=== PATIENT | male | born 1975 | race Caucasian/White ===

== ENCOUNTER 2023-02-03 15:54 | Emergency (ER) | payer BC, OTHER ==
[~2023-02-03] VITALS: Ht 185.4 cm; Wt 136.5 kg
[2023-02-03 18:52] VITALS: BP 169/95
== END 2023-02-03 18:59 | disposition home or self-care (01) ==
LOC: EDH 15:54
DX: T25.222A Burn of second degree of left foot, initial encounter (principal); T25.221A Burn of second degree of right foot, initial encounter; X08.8XXA Exposure to other specified smoke, fire and flames, initial encounter; Y93.01 Activity, walking, marching and hiking; Y92.89 Other specified places as the place of occurrence of the external cause; Y99.8 Other external cause status
CPT/HCPCS: 99281

== ENCOUNTER 2023-05-23 08:03 | Emergency (ER) | payer BC ==
[~2023-05-23] VITALS: Ht 185.4 cm; Wt 138.3 kg
[2023-05-23] MEDS ORDERED: LABETALOL 20MG SYG IV ONE (08:30)
[2023-05-23 08:59] LABS: BASOPHILS # (AUTO) 0.09 K/uL (0.00-0.20); BASOPHILS % (AUTO) 1.2 % (0.0-5.0); EOSINOPHILS # (AUTO) 0.06 K/uL (0.00-0.70); EOSINOPHILS % (AUTO) 0.8 % (0.0-8.0); HEMATOCRIT 45.3 % (42-54); IMMATURE GRANULOCYTE ABSOLUTE 0.02 K/uL (0-1); LYMPHOCYTES # (AUTO) 1.6 K/uL (1.0-4.8); LYMPHOCYTES % (AUTO) 21.7 % (21.0-51.0); MEAN CORPUSCULAR HEMOGLOBIN 28.2 pg (27.0-33.0); MEAN CORPUSCULAR VOLUME 82.8 fL (79-99); MONOCYTES # (AUTO) 0.6 K/uL (0.1-1.0); MONOCYTES % (AUTO) 7.6 % (3.0-13.0); NEUTROPHILS # (AUTO) 5.1 K/uL (1.8-7.7); NEUTROPHILS % (AUTO) 68.4 % (40.0-77.0); PLATELET COUNT (AUTO) 219 K/uL (130-400); RED BLOOD CELL COUNT(AUTO) 5.47 MIL/uL (4.50-6.20); RED CELL DISTRIBUTION WIDTH 12.3 % (11.0-15.5); WHITE BLOOD COUNT (AUTO) 7.5 K/uL (4.8-10.8)
[2023-05-23 09:16] LABS: ALBUMIN 3.4 g/dL (3.5-5.0); BILIRUBIN,TOTAL 0.4 mg/dL (0.2-1.0); CREATININE 0.8 mg/dL (0.5-1.5); POTASSIUM 4.2 mmol/L (3.5-5.1); TOTAL PROTEIN, SERUM 8.2 g/dL (6.0-8.3)
[2023-05-23 09:30] LABS: INR 0.94 (0.85-1.15); PARTIAL THROMBOPLASTIN TIME 26.5 SEC (26.3-35.5); PROTHROMBIN TIME 10.2 SEC (9.6-11.6)
[2023-05-23] MEDS ORDERED: ACYCLOVIR 200 MG CAPSULE PO SCH (09:30)
[2023-05-23] MEDS ORDERED: FAMOTIDINE 20MG VIAL IV ONE (09:30)
[2023-05-23] MEDS ORDERED: METF500S9 PO (09:53)
[2023-05-23] MEDS ORDERED: LISI10TA24 PO (09:53)
[2023-05-23] MEDS ORDERED: ACYC400T20 PO (09:53)
[2023-05-23] MEDS ORDERED: ATOR10 PO (09:53)
[2023-05-23] MEDS ORDERED: PRED50TA2 PO (09:53)
[2023-05-23] MEDS ORDERED: FAMO-136 PO (09:53)
[2023-05-23] MEDS ORDERED: INSULIN HUMULIN R 100 UNIT/ML 3ML IV ONE (10:00)
[2023-05-23 10:30] VITALS: BP 151/86; PULSE 96; RESP 17; O2SAT 97
== END 2023-05-23 10:44 | disposition home or self-care (01) ==
LOC: EDH 08:03
DX: G51.0 Bell's palsy (principal); I10 Essential (primary) hypertension; E11.65 Type 2 diabetes mellitus with hyperglycemia; Z88.0 Allergy status to penicillin; Z88.8 Allergy status to other drugs, medicaments and biological substances
CPT/HCPCS: 99284; 96374; 70450; 71045; 96375; 82550; 83721; 84484; 80053; 83880; 85025; 85610; 85730; 82948 ×2; 36415; 93005; J1815; J3490

== ENCOUNTER 2025-08-25 10:18 | Emergency (ER) | payer BC ==
[~2025-08-25] VITALS: Ht 185.4 cm; Wt 127.0 kg
[~2025-08-25 10:18] MED LIST: ACYC-429 PO; ATOR10 PO; FAMO-136 PO; LISI10TA24 PO; METF500S9 PO; PRED50TA2 PO
[2025-08-25] MEDS ORDERED: PRED20TA3 PO (10:37)
[2025-08-25] MEDS ORDERED: ACYC-61 PO (10:37)
--- NOTE | 2025-08-25 10:37 | ERN ---
ED Note History of Present Illness Stated Complaint: POSSIBLE BELLS PALSY Chief Complaint: Face Pain/Problem Time Seen by MD: 10:29 Dictation: 50-year-old male presenting to the emergency department with right facial droop which began since last night. Patient has a history of Oden's palsy two years ago with symptoms resolved. Patient has a history of hypertension and diabetes. Allergies: Coded Allergies: Penicillins (Unverified Allergy, Unknown, 02/03/23) azithromycin (Unverified Allergy, Unknown, 02/03/23) Home Meds Active Scripts Prednisone (Prednisone) 50 Mg Tablet, 50 MG PO DAILY for 5 Days, #5 TAB 0 Refills Prov:KYLIE LAWRENCE Sr., MD 05/23/23 Acyclovir (Acyclovir) 400 Mg Tablet, 400 MG PO AD, #50 TAB 0 Refills Five times per day for ten days Prov:KYLIE LAWRENCE Sr., MD 05/23/23 Famotidine (Pepcid) 20 Mg Tablet, 20 MG PO BID, #60 TAB 2 Refills Prov:KYLIE LAWRENCE Sr., MD 05/23/23 Atorvastatin Calcium (LIPITOR) 20 Mg Tab, 20 MG PO HS, #30 TAB 2 Refills Prov:KYLIE LAWRENCE Sr., MD 05/23/23 Lisinopril (Lisinopril) 10 Mg Tablet, 2 TAB PO DAILY for 30 Days, #60 TAB 2 Refills Prov:KYLIE LAWRENCE Sr., MD 05/23/23 Metformin HCl (Metformin HCl) 500 Mg/5 Ml Solution, 500 MG PO BID, #60 ML 2 Refills Prov:KYLIE LAWRENCE Sr., MD 05/23/23 Past Medical History Past Medical History: Diabetes-Type II, Hypertension Surgical History: None Social History: Negative Review of System Dictation Constitutional: Negative for fever,chills, and weight loss Eyes: Negative for injury, pain,redness, and discharge ENT: Negative for injury,pain or swelling Cardiovascular: Negative for chest pain, palpitations, and edema Respiratory: Negative for shortness of breath, cough, and wheezing, Abdomen/GI: Negative for abdominal pain, nausea, vomiting, diarrhea, and constipation Back: Negative for injury and pain : Negative for injury, bleeding and discharge MS/Extremity: Negative for injury and deformity Skin: Negative for rash, and discoloration Neuro: Per HPI Initial Vital Sign VS Vital Signs Date Time Temp Pulse Resp B/P (MAP) Pulse Ox O2 Delivery O2 Flow Rate FiO2 08/25/25 10:21 98.4 104 16 157/97 99 Room Air 1.0 Physical Exam Dictation General: awake, alert, NAD Head/Face: Normocephalic, atraumatic Eyes: PERRL, EOMI, vision at baseline ENT: oral cavity clear, TMs clear, no signs of infection Neck: Trachea midline, supple, no nuchal rigidity Cardiovascular: RRR, normal S1/S2, No MRGs, no JVD Respiratory: CTAB, no respiratory distress, No rales or wheezes Abdomen: Soft, non-tender, non-distended, normal bowel sounds, no guarding or rebound. Skin: Warm, dry, normal turgor, no rash MS/Extremity: Pulses equal, no cyanosis, neurovascular intact, FROM Neuro: COAx4, GCS 15, strength 5/5, right-sided facial droop that involves upper and lower part of the face., normal cerebellar exam, normal gait, Psych: Normal behavior, mood, and affect normal Results (Laboratory/Radiology) Labs Reviewed?: Yes ED Course ED Course Orders Procedure Category Date Status Time Random Accucheck At CPOE 08/25/25 Transmitted Bedside 10:29 Vital Signs Date Time Temp Pulse Resp B/P (MAP) Pulse Ox O2 Delivery O2 Flow Rate FiO2 08/25/25 10:21 98.4 104 16 157/97 99 Room Air 1.0 Medical Decision Making MDM MDM: Differential diagnosis: Rationale: Tests considered and ordered secondary to shared decision making include: Previous outside records reviewed: Old ER visits. Risk of complication and/or morbidity or mortality of patient management: None Medications-Per medication reconciliation Need for hospitalization: Patient does not meet criteria for hospitalization. Need for emergency major/minor surgery: No There are no social concerns with this patient. Prescription drug management Prescriptions will include symptomatic care Patient's prior external medical records from other ER visits were reviewed by me as indicated. Prior testing and results from previous visits were reviewed. Prior tests were taken into account with medical decision making and resource utilization, independent historian/historians were used to obtain complete medical history. I independently interpreted the test that were performed, results were reviewed by me and considered findings on radiology if ordered. Medical management and examination interpretation discussions were had by me wi th other qualified healthcare professionals as indicated for the patient's care. 50-year-old male with peripheral nerve palsy, patient has right-sided Oden's palsy, entire neuro exam is normal otherwise, weakness involves upper and lower part of right side of the face, no vision changes patient is stable for outpatient treatment and no imaging is indicated For central lesion r/o. DX & DISP Disposition: Discharge Departure Impression: Primary Impression: Oden's palsy Condition: Stable Scripts Acyclovir (Acyclovir) 200 Mg Capsule 1 CAP PO 5XDAY for 5 Days, #25 CAP 0 Refills Prov: PAULINE LEE MD 08/25/25 Prednisone (Prednisone) 20 Mg Tablet 20 MG PO DAILY for 5 Days, #5 TAB Prov: PAULINE LEE MD 08/25/25 Referrals: JOSH GALINDO MD (PCP) PAULINE LEE MD Aug 25, 2025 10:37
[2025-08-25 10:51] VITALS: BP 151/87; PULSE 95; RESP 18; TEMP 98.4; O2SAT 99
== END 2025-08-25 10:52 | disposition home or self-care (01) ==
LOC: EDH 10:18
DX: G51.0 Bell's palsy (principal); E11.9 Type 2 diabetes mellitus without complications; I10 Essential (primary) hypertension; Z88.0 Allergy status to penicillin; Z88.1 Allergy status to other antibiotic agents; Z79.899 Other long term (current) drug therapy; Z79.84 Long term (current) use of oral hypoglycemic drugs; Z79.52 Long term (current) use of systemic steroids
CPT/HCPCS: 82948; 99282; 99283